=== PATIENT | female | born 1960 | race Two or more races ===

== ENCOUNTER 2019-08-16 07:20 | Outpatient (CLI) | payer OTHER | END 2019-08-16 07:39 | disposition home or self-care (01) | LOC: LAB 07:20 | DX: D50.8 Other iron deficiency anemias (principal); E83.51 Hypocalcemia; Z11.3 Encounter for screening for infections with a predominantly sexual mode of transmission; E78.00 Pure hypercholesterolemia, unspecified; N83.209 Unspecified ovarian cyst, unspecified side; E03.8 Other specified hypothyroidism; Z13.1 Encounter for screening for diabetes mellitus; N39.0 Urinary tract infection, site not specified ==

== ENCOUNTER 2019-08-24 12:59 | Outpatient (CLI) | payer OTHER | END 2019-08-24 13:02 | disposition home or self-care (01) | LOC: RAD 12:59 | DX: Z01.811 Encounter for preprocedural respiratory examination (principal) ==

== ENCOUNTER 2019-08-24 13:10 | Outpatient (CLI) | payer OTHER | END 2019-08-24 16:11 | disposition home or self-care (01) | LOC: EKG 13:10 | DX: Z01.810 Encounter for preprocedural cardiovascular examination (principal) ==

== ENCOUNTER 2021-02-21 06:30 | Day surgery (SDC) | payer OTHER ==
[~2021-02-21 06:30] MED LIST: FORTAMET500 MG PO; GLIPIZIDE XL10 MG PO; PEPCID AC10 MG PO; SINGULAIR10 MG PO
== END 2021-02-21 16:25 | disposition home or self-care (01) ==
LOC: CIR.AMB 06:30
PROVIDERS: ATTEND Specialist
DX: D26.7 Other benign neoplasm of other parts of uterus (principal); Z20.822 Contact with and (suspected) exposure to COVID-19